=== PATIENT | female | born 1990 | race Caucasian/White ===

== ENCOUNTER 2019-05-19 10:58 | Inpatient (IN) | payer OTHER ==
[2019-05-19] MEDS ORDERED: miSOPROStol 100 MCG TAB VAG PRN (16:32)
[2019-05-19] MEDS ORDERED: Ringers Lactate 1,000 ML IV ONE ×2 (16:43→17:22)
[2019-05-19] MEDS ORDERED: miSOPROStol 100 MCG TAB ONE (16:54)
[2019-05-19] MEDS ORDERED: Ringers Lactate 1,000 ML IV PRN (17:50)
[2019-05-19] MEDS ORDERED: OXYTOCIN/LR 20 UNIT/1,000 ML BAG IV SCH (18:00)
[2019-05-19] MEDS ORDERED: Ringers Lactate 1,000 ML IV SCH (18:00)
[2019-05-19 18:41] LABS: RPR Titer ND
[2019-05-19 18:43] LABS: Absolute Lymphocytes (CBC) 1.7 K/uL (0.7-4.9); Basophils % 0.2 % (0-1.3); Eosinophils % 0.4 % (0-4.4); Hematocrit 36.4 % (36.0-45.0); Lymphocytes % 15.2 % (15.3-44.8); MPV 8.5 fL (7.6-11.3); Monocytes % 4.4 % (3.3-12.3); RBC Red Blood Cell Count 3.93 M/uL (3.86-4.86)
[2019-05-19 19:02] LABS: Urine Appearance CLOUDY; Urine Bilirubin NEGATIVE (NEG); Urine Blood 2+ (NEG); Urine Color YELLOW; Urine Glucose NEGATIVE (NEG); Urine Protein NEGATIVE (NEG)
[2019-05-19 19:17] LABS: Urine Bacteria >50 /HPF (<20); Urine Culture Reflex Order REFLEXED; Urine RBC >50 /HPF (NONE SEEN)
[2019-05-19 19:58] VITALS: BMI 30.1
[2019-05-19] MEDS ORDERED: BUTORPHANOL 1 MG/ML INJ IV PRN (20:41)
[2019-05-19] MEDS ORDERED: PROMETHAZINE 25 MG/ML VIAL IV PRN (20:41)
[2019-05-19 21:29] LABS: RPR (Rapid Plasma Reagin) NON-REACT (NON-REACT)
--- NOTE | 2019-05-19 22:38 | PREOPHP ---
Date of Admission: 05/19/2019 This is a 28-year-old, 3, para 2, 39 weeks, for Cytotec insertion. Full pre-insertion talk i n the office and again today. FHTs normal, reactive. She is 1.5 cm, 50% effaced, vertex, -2 station . A 25 mcg Cytotec inserted. We will wait 6 hours and insert another one if necessary and 6 hours a fter that a third one if necessary. She knows she can have pain medicines if she gets a very uncomfo rtable tonight. She knows if membranes rupture to tell a nurse quickly. She will be 39 and 1 tomorr ow when we anticipate delivery if not sooner. Full labor and delivery talk. RAFIA/VERNA Voice ID: [id number]
[2019-05-19] MEDS ORDERED: NS 0.9% VIAL 10 ML ONE (22:50)
[2019-05-20] MEDS ORDERED: METHYLERGONOVINE 0.2MG/ML AMP IM PRN (04:05)
[2019-05-20] MEDS ORDERED: MEPERIDINE HCL 25 MG/0.5 ML IV PRN (04:05)
[2019-05-20] MEDS ORDERED: CARBOPROST TROME 250 MCG/ML IM PRN (04:05)
[2019-05-20] MEDS ORDERED: OXYTOCIN/LR 20 UNIT/1,000 ML BAG IV ONE (04:10)
[2019-05-20] MEDS ORDERED: OXYTOCIN/LR 20 UNIT/1,000 ML BAG IV SCH ×2 (05:00→12:00)
[2019-05-20] MEDS ORDERED: LIDOCAINE 1% 20 ML MDV ONE (10:50)
[2019-05-20] MEDS ORDERED: DIPHENHYDRAMINE 25 MG TAB/CAP PO PRN (11:12)
[2019-05-20] MEDS ORDERED: METHYLERGONOVINE 0.2 MG TAB PO PRN (11:12)
[2019-05-20] MEDS ORDERED: ACETAMINOPHEN 500 MG TAB PO PRN (11:12)
[2019-05-20] MEDS ORDERED: DOCUSATE NA/SENNA CONC 1 TAB PO PRN (11:12)
[2019-05-20] MEDS ORDERED: BISACODYL 10 MG RECTAL SUPP RECT PRN (11:12)
[2019-05-20] MEDS ORDERED: Oxycodone HCl/Acetaminophen 1 TAB TAB PO PRN ×2 (11:12)
[2019-05-20] MEDS ORDERED: IBUPROFEN 200 MG TAB PO PRN (11:12)
[2019-05-20] MEDS ORDERED: Ringers Lactate 2,000 ML IV ONE (15:54)
--- NOTE | 2019-05-20 22:30 | OP ---
Surgeon: David De La Rosa MD A 28-year-old, 3, para 2, 39 weeks, had Cytotec inserted last night, 25 mcg. This resulted in good labor pattern. She progressed to 3 cm, but at that time, basically stopped. She was started on Pitocin and then labor pattern resumed. She received 1 mg of Stadol during the first stage of labor, otherwise , Lamaze breathing techniques. Rupture of membranes at 3 cm, clear fluid. The patient went rapidly to complete. Second stage of 15 to 20 minutes. Spontaneous vaginal delivery of an estimated 8-pound female. Apgars 9 and 9. Mild shoulder dystocia. Flexion of the legs and suprapubic pressure affected easy delivery. First-degree laceration on the left labia minora, that had been apparently attempted to be repaired with her last delivery, but the labia had never fused back together. Repair was affected, though the part that was newly lacerated approximately 7-8 stitches, running lock. Schultze delivery of the placenta, which was inspected and noted to be intact and normal. Mild uterine hypotonus, 0.2 mg of Methergine IM and IV drip Pitocin and massage. Estimated blood loss at this point 400-425 cc. The patient tolerated all procedures well. We will give her 25 mg of Demerol at her request. She is Rh positive. Nonimmune to Rubella. Negative beta strep screen. Final Diagnoses: Term intrauterine . Cytotec for labor induction. Vaginal delivery. Mild uterine hypotonicity Mild shoulder dystocia. RAFIA/VERNA Voice ID: [id number] Report ID: [id number] DIEUDONNE
[2019-05-21 07:30] VITALS: O2SAT 98
[2019-05-21] MEDS ORDERED: Tdap (Diph,Pertuss(Acell),Tet Vac) 0.5 ML SYR IMVAC ONE (09:40)
[2019-05-21 11:27] VITALS: BP 124/69; TEMP 97.6
[2019-05-23 02:49] LABS: HBsAG Nonreactive (Nonreactive)
== END 2019-05-21 13:00 | disposition home or self-care (01) | DRG 807 ==
LOC: 2ND-WC 16:04
PROVIDERS: ADMIT Specialist; ATTEND Specialist
PROC: 3E0P7VZ Introduction of Hormone into Female Reproductive, Via Natural or Artificial Opening (ICD-10-PCS; 2019-05-19)
PROC: 10E0XZZ Delivery of Products of Conception, External Approach (ICD-10-PCS; principal; 2019-05-20)
PROC: 0HQ9XZZ Repair Perineum Skin, External Approach (ICD-10-PCS; 2019-05-20)
DX: O66.0 Obstructed labor due to shoulder dystocia (principal); Z37.0 Single live birth; Z3A.39 39 weeks gestation of pregnancy; O70.0 First degree perineal laceration during delivery; O62.2 Other uterine inertia
CPT/HCPCS: 36415; 81001; 85025; 86592; 86705; 86850; 86900; 86901; 87081; 87086; 87088; 87340; 87389; 90471; 90715; J0595; J2210; J2550; J2590